=== PATIENT | female | born 1935 | race Caucasian/White ===

== ENCOUNTER → 2020-05-17 08:53 | Outpatient (CLI) | payer MEDICARE, BC, SELFPAY ==
--- NOTE | ~2020-05-17 | XR_ITS ---
XR knee LT 2V DATE: 05/17/2020 09:07 INDICATION: Left knee pain TECHNIQUE: Standing AP and lateral views COMPARISON: 04/07/2017 left knee FINDINGS: There is mild osteoarthritis including minimal periarticular spurring of the patellofemoral and medial compartments. Small suprapatellar knee joint effusion is suggested. Moderate osteopenia. No fracture or dislocation, periosteal reaction or bone destruction. No radiopaque intra-articular loose body. There is subtle chondrocalcinosis. Femoral artery calcifications. IMPRESSION: Mild osteoarthritis Very subtle chondrocalcinosis Small suprapatellar knee joint effusion is suggested Osteopenia Reviewed, dictated and finalized at location A.
--- NOTE | ~2020-05-17 | XR_ITS ---
XR knee RT 2V DATE: 05/17/2020 09:07 INDICATION: Right knee pain TECHNIQUE: Standing AP and lateral views COMPARISON: 01/12/2018 right knee FINDINGS: There is valgus deformity at the right knee. There is tricompartment osteoarthritis, particularly severe at the lateral compartment. There is subt le chondrocalcinosis. A small suprapatellar knee joint effusion is suggested. Diffuse osteopenia. No fracture, dislocation, periosteal reaction or bone destruction is detected. IMPRESSION: Tricompartment osteoarthritis, most severe at lateral compartment Small suprapatellar knee joint effusion is suggested Valgus deformity Osteopenia. Subtle chondrocalcinosis Reviewed, dictated and finalized at location A.
== END ==
PROVIDERS: PCP Internal Medicine; Visit Provider Nurse Practitioner Family
DX: M17.0 Bilateral primary osteoarthritis of knee (principal); M85.861 Other specified disorders of bone density and structure, right lower leg; M85.862 Other specified disorders of bone density and structure, left lower leg
CPT/HCPCS: 73560

== ENCOUNTER → 2020-06-30 11:28 | Outpatient (CLI) | payer MEDICARE, BC, SELFPAY ==
--- NOTE | ~2020-06-30 | MM_ITS ---
EXAMINATION: MM screening lucho BI w shraddha HISTORY: Screening mammogram TECHNIQUE: Craniocaudal and mediolateral oblique 3-D tomosynthesis images were obtained and synthetic 2-D images were generated. CAD analysis was submitted and interpreted. COMPARISON: 05/12/2018, 05/02/2016, 10/14/2012 BREAST PARENCHYMAL COMPOSITION: The breasts are heterogeneously dense, which may obscure small masses . FINDINGS: Scattered benign-appearing calcifications are present. There is no evidence of suspicious m ass, calcification, or architectural distortion to suggest malignancy in either breast. There has bee n no suspicious interval change. IMPRESSION: 1. No mammographic evidence of malignancy. 2. Recommend routine screening mammography while the patient remains in good health. BI-RADS Category 2: Benign finding(s). Reviewed, dictated and finalized at location A. IMPRESSION: 1. No mammographic evidence of malignancy. 2. Recommend routine screening mammography while the patient remains in good he alth. BI-RADS Category 2: Benign finding(s).
== END ==
PROVIDERS: PCP Internal Medicine; Visit Provider Internal Medicine
DX: Z12.31 Encounter for screening mammogram for malignant neoplasm of breast (principal)
CPT/HCPCS: 77063; 77067

== ENCOUNTER 2020-09-19 03:29 | Emergency (ER) | payer MEDICARE, BC, SELFPAY ==
--- NOTE | ~2020-09-19 | CT_ITS ---
EXAMINATION: CT thoracic lumbar wo con EXAM DATE: 09/19/2020 04:34 INDICATION: Mid and low back pain after fall. TECHNIQUE: Spiral CT thoracolumbar spine was performed without contrast. Axial, coronal and sagittal images of the thoracic spine were reviewed. Axial, coronal and sagittal images of the lumbar spine we re reviewed. The dose-length product (DLP) for this examination was 539.12 mGy-cm. The exposure was tailored according to patient size (auto mA exposure control), and iterative reconstruction (ASIR) wa s used as additional dose reduction technique. Correlation is made to MR lumbar spine 2018. FINDINGS: THORACIC SPINE: Mild to moderate thoracic disc disease and arthropathy. No significant central canal or neural foraminal stenosis. The vertebral bodies are aligned in the AP dimension. Paraspinal soft t issue is unremarkable. LUMBAR SPINE: There is grade 2 anterolisthesis L5 on S1, without spondylolysis. Grade 1 anterolisthes is L4 on L5. Moderate to severe L5-S1 disc disease, moderate at L3-4 and mild to moderate at the othe r lumbar levels. There is no evidence of acute lumbar fracture. There is no disc space widening or traumatic vertebral body subluxation suspected. Paraspinal soft tissue is unremarkable. Severe sigm oid diverticulosis. Mild lumbar levoscoliosis. There is severe central canal stenosis at L4-5, severe facet arthropathy at that level. A detailed level by level evaluation of spondylosis can be added as addendum if requested. IMPRESSION: 1. No acute thoracolumbar findings. 2. Severe central canal stenosis L4-5. Reviewed, dictated and finalized at location A. 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
--- NOTE | ~2020-09-19 | CT_ITS ---
EXAMINATION: CT cervical spine wo con EXAM DATE: 09/19/2020 04:33 INDICATION: Fall, head injury. TECHNIQUE: Spiral CT of the cervical spine was performed without contrast. Axial images were reviewe d. Coronal and sagittal reformatted images were also reviewed. The dose-length product (DLP) for thi s examination was 154.09 mGy-cm. The exposure was tailored according to patient size (auto mA exposu re control), and iterative reconstruction (ASIR) was used as additional dose reduction technique. ere is no prior study for comparison. FINDINGS: There is no evidence of acute cervical fracture. The odontoid process is intact. Pre-dens space is normal. Prevertebral soft tissue is normal. There are no soft tissue abnormalities identi fied. There is no disc space widening or traumatic vertebral body subluxation suspected. There is a dvanced cervical spondylosis. There is right suboccipital scalp contusion. A detailed level by level evaluation of spondylosis can be added as addendum if requested. IMPRESSION: 1. No acute cervical fracture. 2. Advanced cervical spondylosis. 3. Right suboccipital scalp contusion. Reviewed, dictated and finalized at location A. [employer] SERVIC[employer]
--- NOTE | ~2020-09-19 | CT_ITS ---
EXAMINATION: CT brain wo con DATE: 09/19/2020 04:33 INDICATION: Head injury. TECHNIQUE: Computed tomography (CT) of the head was performed without intravenous contrast. The mA wa s adjusted according to patient size. Iterative reconstruction technique was employed. The dose-lengt h product was 605.33 mGy-cm. COMPARISON: None FINDINGS: There are scattered areas of low attenuation in the cerebral white matter, which is within normal limits for the patient's age. There is no intracranial hemorrhage, acute infarction, or abnorm al intracranial mass lesion. The ventricles are normal in size. There is a right posterior scalp trino ant. There are likely changes of ocular lens replacement surgeries. There is mucosal thickening in t he right sphenoid sinus and the posterior right ethmoid sinuses with thickening and sclerosis of the sinus liao, consistent with chronic sinusitis. The mastoid air cells are normal. IMPRESSION: 1. Normal aging brain. 2. Chronic sinusitis. Reviewed, dictated and finalized at location A. 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
--- NOTE | 2020-09-19 03:40 | ED.FALL ---
HPI - Fall General Chief Complaint: Head Injury Stated Complaint: fell and hit head Time Seen by Provider: 09/19/20 03:40 Source: patient and family Mode of arrival: wheelchair Limitations: no limitations History of Present Illness HPI Narrative: Patient is an 85-year-old female with a history of hypertension, spinal stenosis who presents for evaluation following a fall. Patient states that she took her small dog outside on the leash to let it out to use the restroom, when the leash pulled, she lost her balance and fell backward, hitting her head on the concrete. She denied loss of consciousness. She reports dull, aching headache pain. Patient is on a daily aspirin but denies any other anticoagulation. She currently denies blurry vision, vomiting, although she does endorse some nausea. She reports some lower, aching back pain. She denies any numbness or weakness in her upper or lower extremities. She denies any chest pain, shortness of breath, palpitations prior to or following the fall. Related Data Home Medications Medication Instructions Recorded Confirmed aspirin [Adult Low Dose Aspirin] 81 mg PO HS 09/19/20 Allergies Allergy/AdvReac Type Severity Reaction Status Date / Time No Known Allergies Allergy Mild Unverified 09/19/20 03:58 Review of Systems Review of Systems: Narrative: CONSTITUTIONAL: Denies fever, chills, or sweats. EYES: Denies visual changes, redness, or discharge. ENT: Denies rhinorrhea, congestion, sore throat, or otalgia. CARDIOVASCULAR: Denies chest pain, palpitations, or edema. RESPIRATORY: Denies cough or dyspnea. GASTROINTESTINAL: Denies abdominal pain, reports nausea without vomiting GENITOURINARY: Denies dysuria or hematuria. SKIN: Denies rash or itching. MUSCULOSKELETAL: Reports lower back pain, denies other joint pain, or myalgia. NEUROLOGIC: Reports headache, denies numbness, or weakness. [facility] Past Medical History Medical History Hypertension Spinal stenosis Surgical History Surgical History (Updated 09/19/20 @ 04:00 by Rosalee Pendleton MD) H/O lumpectomy Social History Social History (Updated 09/19/20 @ 04:00 by Rosalee Pendleton MD) Smoking status: Never smoker Alcohol intake: never Substance use: never Living arrangements: with family Gender identity (if verbalized by the patient): Female Exam Narrative: Exam Narrative: Nursing note and vitals reviewed. CONSTITUTIONAL: The patient appears well-developed and well-nourished. No distress. HEAD: Hematoma to the right posterior parietal lobe nonboggy, irregular, superficial abrasion, no laceration. EYES: 2+ PERRL, EOMI, normal conjunctiva, anicteric EARS: External ears clear bilaterally, no hemotympanum MOUTH: OP clear, no erythema, exudates NECK: midline trachea, supple, FROM. No midline cervical spinal tenderness. No step-offs or deformities. CARDIOVASCULAR: Normal rate, regular rhythm, normal heart sounds and intact distal pulses. No murmurs, rubs, gallops. PULMONARY: Effort normal and breath sounds normal. No respiratory distress. The patient has no wheezes, rales, ronchi. No chest wall tenderness, crepitus or ecchymoses. ABDOMINAL: Soft. Nontender, nondistended. No palpable masses Thorax: T12, L1, L2 midline tenderness, tenderness about the sacrum, no numbness, sensation intact EXTREMITIES:: moving all extremities symmetrically. Pelvis stable to anterior and lateral compression. -RUE: No deformity. Normal ROM at shoulder, elbow, wrist, and hand. Sensation intact M/U/R. Pulse 2+. -LUE: No deformity. Normal ROM at shoulder, elbow, wrist, and hand. Abrasion to left forearm. Sensation intact M/U/R. Pulse 2+ -RLE: No deformity. Normal ROM at hip, knee, ankle. Sensation intact distally. -LLE: No deformity. Normal ROM at hip, knee, ankle. Sensation intact distally. NEUROLOGY: The patient is alert and oriented to person, place, and time. CN II-XII Course
[2020-09-19 03:45] VITALS: BP 199/66; PULSE 57; RESP 17; TEMP 36.7; O2SAT 99
[2020-09-19] MEDS: ACETAMINOPHEN 500 MG TABLET 1000 MG PO (05:32)
[2020-09-19 05:39] VITALS: BP 185/74; PULSE 60; RESP 17; O2SAT 100
== END 2020-09-19 05:46 | disposition home or self-care (01) ==
PROVIDERS: Emergency Provider Emergency Medicine; PCP Internal Medicine
DX: S00.03XA Contusion of scalp, initial encounter (principal); I10 Essential (primary) hypertension; M48.061 Spinal stenosis, lumbar region without neurogenic claudication; W18.39XA Other fall on same level, initial encounter; Y93.K1 Activity, walking an animal; J32.9 Chronic sinusitis, unspecified; M47.812 Spondylosis without myelopathy or radiculopathy, cervical region; Z79.82 Long term (current) use of aspirin
CPT/HCPCS: 70450; 72125; 72128; 72131; 99284; A9270